=== PATIENT | male | born 1955 | race Caucasian/White ===

== ENCOUNTER → 2019-05-15 | Outpatient (CLI) | payer BC ==
--- NOTE | 2019-05-15 16:48 | Diagnostic Imaging Report ---
CLINICAL INDICATION: Patient states back went out two weeks ago and has been doing some exercise to help and is not getting better. EXAM: X-ray of the lumbar spine, three views. COMPARISON: None. FINDINGS: There is no acute lumbar spine fracture. There is left curvature of the thoracolumbar spine. There are mildly hypertrophic spurs and facet arthropathy seen throughout the lumbar spine. There is Grade 1 anterolisthesis of L4 on L5 with no pars defects seen. There is at least moderate loss of intervertebral disc height at the L5-S1 level. Sacroiliac joints are unremarkable. 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 2: There is Grade 1 anterolisthesis of L4 on L5 with no pars defect. Dictated by: Dictated on workstation # [id number]
== END ==
LOC: RAD 11:20
PROVIDERS: ATTEND Family Medicine
DX: M47.816 Spondylosis without myelopathy or radiculopathy, lumbar region (principal); M43.16 Spondylolisthesis, lumbar region
CPT/HCPCS: 72100

== ENCOUNTER 2019-08-21 13:30 | Outpatient (CLI) | payer BC ==
[~2019-08-21] VITALS: Ht 188 cm; Wt 143.2 kg
[2019-08-21] MEDS ORDERED: FOSI10TA3 PO (14:26)
[2019-08-21] MEDS ORDERED: LEVO75TA6 PO (14:26)
[2019-08-21] MEDS ORDERED: AMLO10TA7 PO (14:26)
[2019-08-21] MEDS ORDERED: SIMV40TA4 PO (14:26)
[2019-08-21] MEDS ORDERED: CELE-63 PO (14:26)
[2019-08-21] MEDS ORDERED: BUDE10.2 IH (14:26)
== END 2019-08-21 14:27 | disposition home or self-care (01) ==
LOC: PREOP 13:30
PROVIDERS: ATTEND Surgery
DX: Z01.818 Encounter for other preprocedural examination (principal)

== ENCOUNTER 2019-08-27 09:31 | Day surgery (SDC) | payer BC ==
[~2019-08-27 09:31] MED LIST: AMLO10TA7 PO; BUDE10.2 IH; CELE-63 PO; FOSI10TA3 PO; LEVO75TA6 PO; SIMV40TA4 PO
[2019-08-27] MEDS ORDERED: NS IV 500 ML 500 ML IV PRN (09:35)
[2019-08-27] MEDS ORDERED: LIDOCAINE JELLY 2% 6 ML SYRINGE MM PRN (09:45)
[2019-08-27] MEDS ORDERED: LACTATED RINGERS 1,000 ML IV ONE (09:45)
--- NOTE | 2019-08-27 09:48 | Progress Note-Pre Operative ---
Pre-Operative Progress Note H&P Reviewed The H&P was reviewed, patient examined and no changes noted. Date Seen by Provider: Aug 27, 2019 Time Seen by Provider: 09:40 Date H&P Reviewed: Aug 27, 2019 Time H&P Reviewed: 09:40 Pre-Operative Diagnosis: family hx colon ca/screening BERTO BALDWIN MD Aug 27, 2019 09:48
--- NOTE | 2019-08-27 09:50 | Discharge Inst-Surgical ---
D/C Lap Instructions-NICOLASA Follow Up Activity as tolerated High Fiber Diet 25g or more per day Avoid Alcohol, Caffeine, Spicy Butler and Acid foods. Drink 64 fluid oz or more of fluids per day. Symptoms to Report: Fever over 101 degree F, Nausea/Vomiting If any problems/questions: Contact your physician or go to Emergency Room BERTO BALDWIN MD Aug 27, 2019 09:50
[2019-08-27] MEDS ORDERED: MIDAZOLAM 2 MG/2 ML (VERSED) VIAL ONE (09:56)
[2019-08-27] MEDS ORDERED: PROPOFOL INJECTION 50 ML IV ONE ×2 (09:56→10:51)
[2019-08-27] MEDS ORDERED: ACETAMINOPHEN 325 MG TABLET PO PRN (10:00)
[2019-08-27] MEDS ORDERED: CATHETER FLUSH 10 ML SYR IV PRN (10:00)
[2019-08-27] MEDS ORDERED: RT-ALBUTEROL SULF 2.5 MG/3 ML PRE-MIX VIAL INH ONE (10:00)
[2019-08-27] MEDS ORDERED: HYDROcodone/APAP 5 MG/325 MG (LORTAB) TAB PO PRN (10:00)
[2019-08-27] MEDS ORDERED: ONDANSETRON 4 MG/2 ML (SDV) Z0FRAN IVP PRN (10:00)
[2019-08-27] MEDS ORDERED: RT-ALBUTEROL SULF 2.5 MG/3 ML PRE-MIX VIAL ONE (10:07)
[2019-08-27] MEDS ORDERED: LIDOCAINE JELLY 2% 6 ML SYRINGE ONE (10:08)
[2019-08-27 10:10] VITALS: BP 152/92
[2019-08-27] MEDS ORDERED: LACTATED RINGERS 1,000 ML IV SCH (10:30)
[2019-08-27 11:15] VITALS: BP_SYST 102; BP_SYST 126; BP_DIAS 61; BP_DIAS 81
[2019-08-27 11:20] VITALS: BP 126/81
--- NOTE | 2019-08-27 11:26 | Progress Note-Post Operative ---
Post-Operative Progess Note Surgeon (s)/Strainer Tender (s) Surgeon BERTO BALDWIN MD Strainer Tender: none Pre-Operative Diagnosis family hx colon ca/screening Post-Operative Diagnosis mild chronic stage 2 ext and int hemorrhoids, mild sigmoid diverticulosis. Procedure & Operative Findings Date of Procedure 08/27/19 Procedure Performed/Findings Colonoscopy Anesthesia Type mac Estimated Blood Loss Estimated blood loss (mL): minimal Specimens/Packing Specimens Removed none BERTO BALDWIN MD Aug 27, 2019 11:26
[2019-08-27 11:40] VITALS: BP 121/71
[2019-08-27 11:46] VITALS: BP 121/71
--- NOTE | 2019-08-27 15:29 | OPERATIVE REPORT ---
DATE OF SERVICE: 08/27/2019 ATTENDING PRIMARY CARE PHYSICIAN: Dr. Gregory Sutton. PREOPERATIVE DIAGNOSIS: Family history of colon cancer, history of colon polyps. POSTOPERATIVE DIAGNOSIS: Chronic stage II external and internal hemorrhoids, mild sigmoid diverticulosis. PROCEDURE: Colonoscopy. SURGEON: Berto Baldwin MD ANESTHESIA: Monitored anesthesia care. ESTIMATED BLOOD LOSS: Minimal. FINDINGS: Chronic stage II external and internal hemorrhoids, mild sigmoid diverticulosis. DISPOSITION: The patient tolerated the procedure well. INDICATIONS: The patient is a 64-year-old male referred over to us for screening colonoscopy. He states his last colonoscopy was approximately 3 years ago and a number of polyps were identified and there was a larger one identified; however, they were all found to be benign. He does have a family history of colon cancer with his mother being diagnosed with the disease. He states that he does have occasional episodes of constipation. He does not report any red blood per rectum nor any dark tarry stools. DESCRIPTION OF PROCEDURE: The patient was brought to the endoscopy suite, laid in left lateral decubitus position. After adequate IV pain and sedative medications and monitored anesthesia care, a digital rectal examination was performed. There was mild chronic stage II external and internal hemorrhoids, not actively edematous nor inflamed and no bleeding. Normal sphincter tone was felt and there were no palpable masses. Prostate gland was palpable and appeared normal. The endoscope was then intubated to the anus and rectum gently insufflated. The endoscope was then advanced through the valves of Mcke[place] of the rectum with no polyps or any neoplasms identified. Through the sigmoid colon, there was a mild sigmoid diverticulosis. There were no mucosal inflammatory changes to indicate any active diverticulitis. The endoscope was then advanced to the remainder of the descending, transverse and ascending colon to the cecum. These segments were normal. There were no polyps or any neoplasms identified throughout the colon or rectum. The endoscope was then slowly withdrawn while taking a second look and suctioning of residual air with no additional findings. The patient tolerated the procedure well. We will recommend medical management with a high fiber diet with at least 30 grams of fiber daily as well as significant amounts of water to promote soft stools on a daily basis. Due to his first degree family history of colon cancer, we will recommend a followup colonoscopy in 5 years. Job ID: [id number] DocumentID: [id number] Dictated Date: 08/27/2019 11:13:51 Radio Rigger Date: 08/27/2019 15:27:28 Dictated By: BERTO BALDWIN MD
== END 2019-08-27 11:50 | disposition home or self-care (01) ==
LOC: ENDO 09:31
PROVIDERS: ATTEND Surgery
DX: Z12.11 Encounter for screening for malignant neoplasm of colon (principal); K57.30 Diverticulosis of large intestine without perforation or abscess without bleeding; K64.1 Second degree hemorrhoids; Z80.0 Family history of malignant neoplasm of digestive organs; I10 Essential (primary) hypertension; E03.9 Hypothyroidism, unspecified; E78.00 Pure hypercholesterolemia, unspecified; M19.91 Primary osteoarthritis, unspecified site; J45.909 Unspecified asthma, uncomplicated; E66.01 Morbid (severe) obesity due to excess calories; Z88.5 Allergy status to narcotic agent; Z86.010 Personal history of colon polyps; Z96.651 Presence of right artificial knee joint; Z79.899 Other long term (current) drug therapy
CPT/HCPCS: 94640